=== PATIENT | female | born 1940 | race Caucasian/White ===

== ENCOUNTER 2024-12-20 11:57 | Inpatient (IN) | payer MEDICARE, OTHER ==
[~2024-12-20] VITALS: Ht 165.1 cm; Wt 88.6 kg
[2024-12-20 13:12] VITALS: BP 128/90; TEMP 97.5
[2024-12-20 13:27] VITALS: BP 128/90; TEMP 97.5
[2024-12-20] MEDS ORDERED: SEMA1PEN SQ (17:42)
[2024-12-20] MEDS ORDERED: LOSA100T31 PO (17:42)
[2024-12-20] MEDS ORDERED: METO50TA16 PO (17:42)
[2024-12-20] MEDS ORDERED: CEFD300C3 PO (17:42)
[2024-12-20] MEDS ORDERED: APIX5TAB PO (17:42)
[2024-12-20] MEDS ORDERED: METO2.5T2 PO (17:42)
[2024-12-20 17:55] VITALS: BP 106/40; TEMP 98.1; O2SAT 98
[2024-12-20] MEDS: METOPROLOL TARTRATE 50 MG TABLET PO SCH (20:58)
[2024-12-20] MEDS ORDERED: ACETAMINOPHEN 325 MG TABLET PO PRN (21:30)
[2024-12-20 22:44] VITALS: BP 118/62; TEMP 98.2; O2SAT 97
[2024-12-21] MEDS ORDERED: REMEDY ESSENTIAL ZINC PASTE 113 GM TOP PRN (06:45)
[2024-12-21 06:53] VITALS: BP 113/80; TEMP 97.7; O2SAT 99
[2024-12-21 07:48] VITALS: TEMP 97.9
[2024-12-21] MEDS: METOLAZONE 2.5 MG TABLET PO SCH (08:12)
[2024-12-21] MEDS: APIXABAN 5 MG TABLET PO SCH (08:13)
[2024-12-21] MEDS: TRAMADOL HCL 50 MG TABLET PO PRN (08:16)
[2024-12-21] MEDS: CEFDINIR 300 MG CAPSULE PO SCH (09:03)
[2024-12-21] MEDS ORDERED: DEXTROSE 50% 50 ML DISP.SYRIN IV PRN (15:45)
[2024-12-21 16:10] VITALS: TEMP 98
[2024-12-21 16:18] VITALS: O2SAT 98
[2024-12-21] MEDS: BLOOD SUGAR DIAGNOSTIC 1 EACH STRIP VI SCH (16:57)
[2024-12-21] MEDS: INSULIN REGULAR, HUMAN 1000 UNIT/10 ML VIAL SQ PRN (17:00)
[2024-12-21] MEDS: BISACODYL 5 MG TABLET.DR PO ONE (20:19)
[2024-12-21 21:08] VITALS: BP 130/87; TEMP 98; O2SAT 97
[2024-12-22 06:42] VITALS: BP 117/53; TEMP 97.8; O2SAT 97
[2024-12-22 08:00] VITALS: TEMP 97.2
[2024-12-22 08:13] LABS: BASOPHILS % (AUTO) 0.4 % (0.0-2.0); EOSINOPHILS % (AUTO) 0.4 % (0.0-7.0); HEMATOCRIT 37.6 % (31.2-41.9); HEMOGLOBIN 11.9 g/dL (10.9-14.3); LYMPHOCYTES # (AUTO) 0.8 K/uL (0.8-4.8); LYMPHOCYTES % (AUTO) 10.3 % (20.5-51.5); MEAN CORPUSCULAR HEMOGLOBIN 25.4 uug (24.7-32.8); MEAN CORPUSCULAR HGB CONC 32 g/dL (32.3-35.6); MEAN CORPUSCULAR VOLUME 80.2 fL (75.5-95.3); MONOCYTES # (AUTO) 0.6 K/uL (0.1-1.30); MONOCYTES % (AUTO) 8.1 % (0.0-11.0); NEUTROPHILS % (AUTO) 80.8 % (38.5-71.5); PLATELET COUNT (AUTO) 198 K/uL (179-408); RED BLOOD CELL COUNT(AUTO) 4.69 MIL/uL (3.63-4.92); RED CELL DISTRIBUTION WIDTH 15.8 % (12.3-17.7); WHITE BLOOD COUNT (AUTO) 7.4 K/uL (3.8-11.8)
[2024-12-22 08:31] LABS: DIFFERENTIAL COMMENT 1
[2024-12-22 08:42] LABS: IRON, SERUM 17 ug/dL (50-175)
[2024-12-22] MEDS: DOCUSATE SODIUM 100 MG CAPSULE PO SCH (08:46)
[2024-12-22 09:09] LABS: ALANINE AMINOTRANSFERASE 79 U/L (14-59); ALBUMIN 2.4 g/dL (3.4-5.0); ALKALINE PHOSPHATASE 93 U/L (50-136); ASPARTATE AMINOTRANSFERASE 73 U/L (15-37); BILIRUBIN,TOTAL 0.6 mg/dL (0.2-1.0); CALCIUM 8.6 mg/dL (8.5-10.1); CARBON DIOXIDE 35 mmol/L (21-32); CHLORIDE 99 mmol/L (98-107); CHOLESTEROL 135 mg/dL (<200); GLUCOSE 157 mg/dL (74-106); HDL CHOLESTEROL 31 mg/dL (40-60); MAGNESIUM 2.1 mg/dL (1.8-2.4); PHOSPHOROUS 3.4 mg/dL (2.5-4.9); POTASSIUM 3.8 mmol/L (3.5-5.1); SODIUM SERUM 139 mmol/L (136-145); TOTAL PROTEIN, SERUM 5.9 g/dL (6.4-8.2); TRIGLYCERIDES 80 MG/DL (30-150); UREA NITROGEN, BLOOD 32 mg/dL (7-18)
[2024-12-22 14:17] VITALS: O2SAT 97
[2024-12-22 16:21] VITALS: TEMP 97.9
[2024-12-22 21:11] VITALS: BP 119/65; TEMP 98.2; O2SAT 99
[2024-12-23 06:42] VITALS: BP 117/60; TEMP 97.7; O2SAT 97
[2024-12-23 07:32] VITALS: BP 127/78; TEMP 97.7; O2SAT 98
[2024-12-23 15:10] VITALS: BP 120/77; TEMP 97.7; O2SAT 93
[2024-12-23 17:30] VITALS: O2SAT 97
[2024-12-23 20:12] VITALS: BP 108/62; TEMP 98.3; O2SAT 97
[2024-12-24 05:42] VITALS: O2SAT 97
[2024-12-24 05:50] VITALS: BP 138/92; TEMP 98.2; O2SAT 99
[2024-12-24 07:32] LABS: BASOPHILS % (AUTO) 0.6 % (0.0-2.0); EOSINOPHILS % (AUTO) 0.4 % (0.0-7.0); HEMATOCRIT 39.2 % (31.2-41.9); HEMOGLOBIN 12.8 g/dL (10.9-14.3); LYMPHOCYTES # (AUTO) 1.4 K/uL (0.8-4.8); LYMPHOCYTES % (AUTO) 16.9 % (20.5-51.5); MEAN CORPUSCULAR HEMOGLOBIN 26.1 uug (24.7-32.8); MEAN CORPUSCULAR HGB CONC 33 g/dL (32.3-35.6); MEAN CORPUSCULAR VOLUME 79.8 fL (75.5-95.3); MONOCYTES # (AUTO) 0.6 K/uL (0.1-1.30); MONOCYTES % (AUTO) 8.1 % (0.0-11.0); PLATELET COUNT (AUTO) 234 K/uL (179-408); RED BLOOD CELL COUNT(AUTO) 4.91 MIL/uL (3.63-4.92); WHITE BLOOD COUNT (AUTO) 8.1 K/uL (3.8-11.8)
[2024-12-24 07:42] LABS: DIFFERENTIAL COMMENT 1
[2024-12-24 07:50] LABS: ALANINE AMINOTRANSFERASE 70 U/L (14-59); ALBUMIN 2.5 g/dL (3.4-5.0); ALKALINE PHOSPHATASE 106 U/L (50-136); ASPARTATE AMINOTRANSFERASE 66 U/L (15-37); BILIRUBIN,TOTAL 0.5 mg/dL (0.2-1.0); CALCIUM 8.5 mg/dL (8.5-10.1); CARBON DIOXIDE 33 mmol/L (21-32); CHLORIDE 95 mmol/L (98-107); CREATININE 0.9 mg/dL (0.6-1.3); GLUCOSE 101 mg/dL (74-106); POTASSIUM 4.1 mmol/L (3.5-5.1); SODIUM SERUM 131 mmol/L (136-145); TOTAL PROTEIN, SERUM 6.2 g/dL (6.4-8.2); UREA NITROGEN, BLOOD 28 mg/dL (7-18)
[2024-12-24 08:00] VITALS: BP 134/77; TEMP 97.7; O2SAT 99
[2024-12-24 16:11] VITALS: BP 124/74; TEMP 97.6; O2SAT 100
[2024-12-24 16:20] VITALS: O2SAT 99
[2024-12-24 20:52] VITALS: BP 117/63; TEMP 98; O2SAT 97
[2024-12-25 04:11] VITALS: O2SAT 97
[2024-12-25 06:58] VITALS: BP 111/82; TEMP 97.8; O2SAT 97
[2024-12-25 08:34] VITALS: TEMP 97.8
[2024-12-25 16:00] VITALS: TEMP 97.9
[2024-12-25 16:12] VITALS: O2SAT 98
[2024-12-25 20:08] VITALS: BP 114/69; TEMP 98.1; O2SAT 95
[2024-12-26 00:22] VITALS: O2SAT 95
[2024-12-26 06:29] VITALS: BP 112/68; TEMP 98.6; O2SAT 95
[2024-12-26 08:00] VITALS: TEMP 97.5
[2024-12-26 08:55] VITALS: O2SAT 96
[2024-12-26 16:10] VITALS: TEMP 98
[2024-12-26] MEDS ORDERED: NITROGLYCERIN 0.4 MG/TAB BOTTLE SL PRN (19:00)
[2024-12-26 20:24] VITALS: BP 148/87; TEMP 97.3; O2SAT 95
[2024-12-27] VITALS (7 sets, daily range): BP systolic 113–147; BP diastolic 57–89; TEMP 97.2–97.8; O2SAT 95–99
[2024-12-28 07:03] VITALS: BP 123/79; TEMP 97.5; O2SAT 93
[2024-12-28 08:00] VITALS: BP 145/84; TEMP 97.2; O2SAT 97
[2024-12-28 08:52] LABS: BASOPHILS % (AUTO) 0.2 % (0.0-2.0); DIFFERENTIAL COMMENT 0; EOSINOPHILS % (AUTO) 0.4 % (0.0-7.0); HEMATOCRIT 38.3 % (31.2-41.9); HEMOGLOBIN 12.8 g/dL (10.9-14.3); LYMPHOCYTES # (AUTO) 1.1 K/uL (0.8-4.8); LYMPHOCYTES % (AUTO) 11.6 % (20.5-51.5); MEAN CORPUSCULAR HEMOGLOBIN 26.3 uug (24.7-32.8); MEAN CORPUSCULAR HGB CONC 34 g/dL (32.3-35.6); MEAN CORPUSCULAR VOLUME 78.5 fL (75.5-95.3); MONOCYTES # (AUTO) 0.8 K/uL (0.1-1.30); MONOCYTES % (AUTO) 8.7 % (0.0-11.0); NEUTROPHILS # (AUTO) 7.4 K/uL (1.8-8.9); NEUTROPHILS % (AUTO) 79.1 % (38.5-71.5); PLATELET COUNT (AUTO) 224 K/uL (179-408); RED BLOOD CELL COUNT(AUTO) 4.88 MIL/uL (3.63-4.92); RED CELL DISTRIBUTION WIDTH 15.5 % (12.3-17.7); WHITE BLOOD COUNT (AUTO) 9.4 K/uL (3.8-11.8)
[2024-12-28 09:17] LABS: ABG BASE EXCESS 3.5 mmol/L (-2.0-3.0); ABG HCO3 27.5 mmol/L (21.0-28.0); ABG PCO2 39.5 mmHg (32.0-45.0); ABG PH 7.461 (7.350-7.450); ABG PO2 62.6 mmHg (83.0-108.0); ABG SITE RIGHT RADIAL; ABG TOTAL HEMOGLOBIN 13.9 G/dL (12.0-16.0); AaDO2 93.2 mmHg; COHb 0.8 % (0.5-1.5); O2Hb 91.7 % (94.0-98.0)
[2024-12-28] MEDS: BUMETANIDE 1 MG TABLET PO SCH (11:31)
[2024-12-28] MEDS: SPIRONOLACTONE 25 MG TABLET PO SCH (11:32)
[2024-12-28 11:39] LABS: CALCIUM 8.4 mg/dL (8.5-10.1); CARBON DIOXIDE 31 mmol/L (21-32); CHLORIDE 85 mmol/L (98-107); CREATININE 1.2 mg/dL (0.6-1.3); GLUCOSE 153 mg/dL (74-106); UREA NITROGEN, BLOOD 31 mg/dL (7-18)
[2024-12-28 11:42] LABS: SODIUM SERUM 123 mmol/L (136-145)
[2024-12-28] MEDS: SODIUM CHLORIDE 1,000 MG TABLET PO SCH (14:19)
[2024-12-28 16:00] VITALS: BP 139/65; TEMP 97.6; O2SAT 97
[2024-12-28] MEDS: GLUCERNA SHAKE 237 ML CAN PO SCH (16:43)
[2024-12-28 22:45] VITALS: BP 120/74; TEMP 97.7; O2SAT 97
[2024-12-29] VITALS (7 sets, daily range): BP systolic 85–135; BP diastolic 52–87; TEMP 97.2–97.6; O2SAT 95–100
[2024-12-29 07:53] LABS: BASOPHILS % (AUTO) 0.4 % (0.0-2.0); EOSINOPHILS % (AUTO) 0.1 % (0.0-7.0); HEMATOCRIT 39.3 % (31.2-41.9); LYMPHOCYTES % (AUTO) 8.4 % (20.5-51.5); MEAN CORPUSCULAR HEMOGLOBIN 25.8 uug (24.7-32.8); MEAN CORPUSCULAR HGB CONC 33 g/dL (32.3-35.6); MEAN CORPUSCULAR VOLUME 78.3 fL (75.5-95.3); MONOCYTES % (AUTO) 8.3 % (0.0-11.0); NEUTROPHILS # (AUTO) 10.2 K/uL (1.8-8.9); NEUTROPHILS % (AUTO) 82.8 % (38.5-71.5); PLATELET COUNT (AUTO) 298 K/uL (179-408); RED BLOOD CELL COUNT(AUTO) 5.02 MIL/uL (3.63-4.92); RED CELL DISTRIBUTION WIDTH 15.7 % (12.3-17.7); WHITE BLOOD COUNT (AUTO) 12.3 K/uL (3.8-11.8)
[2024-12-29 08:06] LABS: ALANINE AMINOTRANSFERASE 48 U/L (14-59); ALBUMIN 2.7 g/dL (3.4-5.0); ALKALINE PHOSPHATASE 121 U/L (50-136); ASPARTATE AMINOTRANSFERASE 41 U/L (15-37); BILIRUBIN,DIRECT 0.3 mg/dL (0.0-0.2); BILIRUBIN,TOTAL 0.8 mg/dL (0.2-1.0); CALCIUM 8.7 mg/dL (8.5-10.1); CARBON DIOXIDE 32 mmol/L (21-32); CHLORIDE 85 mmol/L (98-107); CREATININE 1.1 mg/dL (0.6-1.3); GLUCOSE 118 mg/dL (74-106); PHOSPHOROUS 3.8 mg/dL (2.5-4.9); POTASSIUM 4.2 mmol/L (3.5-5.1); SODIUM SERUM 124 mmol/L (136-145); TOTAL PROTEIN, SERUM 6.8 g/dL (6.4-8.2); UREA NITROGEN, BLOOD 26 mg/dL (7-18); URIC ACID 9.1 mg/dL (2.6-6.0)
[2024-12-29 08:10] LABS: DIFFERENTIAL COMMENT 1
[2024-12-29 08:41] LABS: THYROID STIMULATING HORMONE 4.146 mIU/mL (0.358-3.740)
[2024-12-30] MEDS: MIRALAX 17 GM POWD.PACK PO PRN (07:00)
[2024-12-30 07:20] LABS: BASOPHILS % (AUTO) 0.2 % (0.0-2.0); EOSINOPHILS % (AUTO) 0.1 % (0.0-7.0); HEMATOCRIT 41.5 % (31.2-41.9); HEMOGLOBIN 13.7 g/dL (10.9-14.3); LYMPHOCYTES # (AUTO) 1.4 K/uL (0.8-4.8); LYMPHOCYTES % (AUTO) 12.2 % (20.5-51.5); MEAN CORPUSCULAR HEMOGLOBIN 26.1 uug (24.7-32.8); MEAN CORPUSCULAR HGB CONC 33 g/dL (32.3-35.6); MEAN CORPUSCULAR VOLUME 79.3 fL (75.5-95.3); MONOCYTES % (AUTO) 8.5 % (0.0-11.0); NEUTROPHILS # (AUTO) 9.1 K/uL (1.8-8.9); PLATELET COUNT (AUTO) 292 K/uL (179-408); RED BLOOD CELL COUNT(AUTO) 5.24 MIL/uL (3.63-4.92); RED CELL DISTRIBUTION WIDTH 15.9 % (12.3-17.7); WHITE BLOOD COUNT (AUTO) 11.5 K/uL (3.8-11.8)
[2024-12-30 07:30] LABS: DIFFERENTIAL COMMENT 1
[2024-12-30 07:33] LABS: CARBON DIOXIDE 35 mmol/L (21-32); CHLORIDE 86 mmol/L (98-107); CREATININE 1.1 mg/dL (0.6-1.3); GLUCOSE 115 mg/dL (74-106); MAGNESIUM 1.8 mg/dL (1.8-2.4); PHOSPHOROUS 3.5 mg/dL (2.5-4.9); POTASSIUM 4.1 mmol/L (3.5-5.1); SODIUM SERUM 127 mmol/L (136-145); UREA NITROGEN, BLOOD 25 mg/dL (7-18)
[2024-12-30 07:35] VITALS: BP 141/71; O2SAT 100
[2024-12-30 08:14] VITALS: BP 127/71; TEMP 97.7; O2SAT 96
[2024-12-30] MEDS: BISACODYL 10 MG SUPP.RECT RC ONE (08:34)
[2024-12-30 16:00] VITALS: O2SAT 97
[2024-12-30 16:11] VITALS: TEMP 97.6
[2024-12-30 20:04] VITALS: BP 115/60; TEMP 97.5; O2SAT 97
[2024-12-30 20:52] VITALS: O2SAT 97
[2024-12-31 06:24] VITALS: BP 127/64; TEMP 97.6; O2SAT 98
[2024-12-31 07:42] VITALS: TEMP 97.8
[2024-12-31 08:00] VITALS: BP 123/64; TEMP 97.8; O2SAT 97
[2024-12-31] MEDS: CLOTRIMAZOLE/BETAMET DIPROP CREAM 15 GM TUBE TOP SCH (11:57)
[2024-12-31] MEDS: NYSTATIN POWDER 15 GM BOTTLE TOP SCH (11:59)
[2024-12-31 16:37] VITALS: TEMP 98.2; O2SAT 99
[2024-12-31 20:33] VITALS: O2SAT 97
[2025-01-01 06:00] VITALS: BP 103/67; TEMP 97.4; O2SAT 98
[2025-01-01 06:43] LABS: ALANINE AMINOTRANSFERASE 35 U/L (14-59); ALBUMIN 2.6 g/dL (3.4-5.0); ALKALINE PHOSPHATASE 91 U/L (50-136); ASPARTATE AMINOTRANSFERASE 34 U/L (15-37); BILIRUBIN,TOTAL 0.6 mg/dL (0.2-1.0); CALCIUM 8.5 mg/dL (8.5-10.1); CHLORIDE 89 mmol/L (98-107); GLUCOSE 126 mg/dL (74-106); MAGNESIUM 1.6 mg/dL (1.8-2.4); PHOSPHOROUS 3.9 mg/dL (2.5-4.9); POTASSIUM 4.2 mmol/L (3.5-5.1); SODIUM SERUM 130 mmol/L (136-145); TOTAL PROTEIN, SERUM 6.3 g/dL (6.4-8.2); UREA NITROGEN, BLOOD 27 mg/dL (7-18)
[2025-01-01 06:47] LABS: BASOPHILS % (AUTO) 0.2 % (0.0-2.0); DIFFERENTIAL COMMENT 0; EOSINOPHILS % (AUTO) 0.3 % (0.0-7.0); HEMATOCRIT 38.3 % (31.2-41.9); HEMOGLOBIN 12.8 g/dL (10.9-14.3); LYMPHOCYTES # (AUTO) 0.9 K/uL (0.8-4.8); LYMPHOCYTES % (AUTO) 9.8 % (20.5-51.5); MEAN CORPUSCULAR HEMOGLOBIN 26.3 uug (24.7-32.8); MEAN CORPUSCULAR HGB CONC 33 g/dL (32.3-35.6); MEAN CORPUSCULAR VOLUME 78.7 fL (75.5-95.3); MONOCYTES # (AUTO) 0.7 K/uL (0.1-1.30); MONOCYTES % (AUTO) 8.1 % (0.0-11.0); NEUTROPHILS # (AUTO) 7.5 K/uL (1.8-8.9); NEUTROPHILS % (AUTO) 81.6 % (38.5-71.5); PLATELET COUNT (AUTO) 235 K/uL (179-408); RED BLOOD CELL COUNT(AUTO) 4.86 MIL/uL (3.63-4.92); RED CELL DISTRIBUTION WIDTH 15.8 % (12.3-17.7); WHITE BLOOD COUNT (AUTO) 9.2 K/uL (3.8-11.8)
[2025-01-01 06:57] LABS: CARBON DIOXIDE 40 mmol/L (21-32)
[2025-01-01 08:09] VITALS: BP 111/60; TEMP 97.7; O2SAT 98
[2025-01-01] MEDS: ACETAzolamide 250 MG TABLET PO SCH (10:29)
[2025-01-01] MEDS: MAGNESIUM SULFATE/D5W 100 ML IV SCH (10:29)
[2025-01-01 16:00] VITALS: BP 110/58; TEMP 97.6; O2SAT 98
[2025-01-01 20:46] VITALS: O2SAT 97
[2025-01-01 21:25] VITALS: BP 112/52; TEMP 97.2; O2SAT 97
[2025-01-02 07:24] LABS: BASOPHILS % (AUTO) 0.5 % (0.0-2.0); EOSINOPHILS % (AUTO) 0.6 % (0.0-7.0); HEMATOCRIT 37.5 % (31.2-41.9); HEMOGLOBIN 12.3 g/dL (10.9-14.3); LYMPHOCYTES # (AUTO) 0.8 K/uL (0.8-4.8); LYMPHOCYTES % (AUTO) 11.4 % (20.5-51.5); MEAN CORPUSCULAR HEMOGLOBIN 25.8 uug (24.7-32.8); MEAN CORPUSCULAR HGB CONC 33 g/dL (32.3-35.6); MEAN CORPUSCULAR VOLUME 79.2 fL (75.5-95.3); MONOCYTES # (AUTO) 0.6 K/uL (0.1-1.30); MONOCYTES % (AUTO) 8.8 % (0.0-11.0); NEUTROPHILS # (AUTO) 5.7 K/uL (1.8-8.9); NEUTROPHILS % (AUTO) 78.7 % (38.5-71.5); PLATELET COUNT (AUTO) 228 K/uL (179-408); RED BLOOD CELL COUNT(AUTO) 4.74 MIL/uL (3.63-4.92); RED CELL DISTRIBUTION WIDTH 16.2 % (12.3-17.7); WHITE BLOOD COUNT (AUTO) 7.3 K/uL (3.8-11.8)
[2025-01-02 07:32] LABS: DIFFERENTIAL COMMENT 1
[2025-01-02 07:33] VITALS: BP 120/72; TEMP 97.6; O2SAT 100
[2025-01-02 07:40] LABS: CALCIUM 8.5 mg/dL (8.5-10.1); CARBON DIOXIDE 37 mmol/L (21-32); CHLORIDE 93 mmol/L (98-107); CREATININE 1.2 mg/dL (0.6-1.3); GLUCOSE 112 mg/dL (74-106); MAGNESIUM 2.1 mg/dL (1.8-2.4); PHOSPHOROUS 4.1 mg/dL (2.5-4.9); POTASSIUM 3.8 mmol/L (3.5-5.1); SODIUM SERUM 132 mmol/L (136-145); UREA NITROGEN, BLOOD 31 mg/dL (7-18)
[2025-01-02] MEDS: BUMETANIDE 1 MG TABLET PO SCH (08:51)
[2025-01-02] MEDS: SHARK LIVER OIL/PETROLAT OINT 60 GM TUBE RC PRN (10:22)
[2025-01-02] MEDS ORDERED: BISACODYL 5 MG TABLET.DR PO PRN (10:45)
[2025-01-02 11:21] VITALS: O2SAT 99
[2025-01-02] MEDS: BISACODYL 5 MG TABLET.DR PO PRN (12:06)
[2025-01-02] MEDS: MEDIHONEY= THERAHONEY 1.5 OZ TUBE TOP SCH (12:06)
[2025-01-02 15:20] VITALS: BP 109/47; TEMP 97.7; O2SAT 97
== END 2025-01-02 19:19 | disposition home health service (06) | DRG 291 ==
LOC: UNDOADMIN 11:57
PROVIDERS: ADMIT Physical Medicine & Rehabilitation Pain Medicine; ATTEND Physical Medicine & Rehabilitation Pain Medicine
PROC: 05HC33Z Insertion of Infusion Device into Left Basilic Vein, Percutaneous Approach (ICD-10-PCS; principal; 2025-01-01)
DX: I13.0 Hypertensive heart and chronic kidney disease with heart failure and stage 1 through stage 4 chronic kidney disease, or unspecified chronic kidney disease (principal); I50.43 Acute on chronic combined systolic (congestive) and diastolic (congestive) heart failure; N17.0 Acute kidney failure with tubular necrosis; J96.01 Acute respiratory failure with hypoxia; D68.59 Other primary thrombophilia; I48.20 Chronic atrial fibrillation, unspecified; J98.11 Atelectasis; E87.1 Hypo-osmolality and hyponatremia; I27.20 Pulmonary hypertension, unspecified; E11.9 Type 2 diabetes mellitus without complications; E11.22 Type 2 diabetes mellitus with diabetic chronic kidney disease; E11.40 Type 2 diabetes mellitus with diabetic neuropathy, unspecified; E78.5 Hyperlipidemia, unspecified; I25.10 Atherosclerotic heart disease of native coronary artery without angina pectoris; I34.0 Nonrheumatic mitral (valve) insufficiency; I42.9 Cardiomyopathy, unspecified; I48.0 Paroxysmal atrial fibrillation; I70.0 Atherosclerosis of aorta; K59.00 Constipation, unspecified; N18.9 Chronic kidney disease, unspecified; Z79.01 Long term (current) use of anticoagulants; Z68.36 Body mass index [BMI] 36.0-36.9, adult; E66.9 Obesity, unspecified; Z87.440 Personal history of urinary (tract) infections
CPT/HCPCS: 36415; 36600; 71045; 83550; 83735; 84100; 84443; 84550; 85025; 94760; 97535-GO-CO; A4663; A6209; A9150; J1815; J3475; J8499

== ENCOUNTER 2025-03-18 16:32 | Inpatient (IN) | payer MEDICARE, OTHER ==
[~2025-03-18] VITALS: Ht 162.6 cm; Wt 88.7 kg
[~2025-03-18 16:32] MED LIST: APIX5TAB PO; CEFD300C3 PO; LOSA100T31 PO; METO2.5T2 PO; METO50TA16 PO; SEMA1PEN SQ
[2025-03-19 10:00] VITALS: BP 135/76; TEMP 98
[2025-03-19 11:02] VITALS: BP 135/76; TEMP 98
[2025-03-20 13:16] VITALS: BP 108/74; TEMP 97.4
[2025-03-20 13:31] VITALS: BP 108/74; TEMP 97.4
[2025-03-20] MEDS ORDERED: CEPH500C2 PO (17:43)
[2025-03-20] MEDS ORDERED: CAPT25TA3 PO (17:45)
[2025-03-20] MEDS ORDERED: ASPI-1420 PO (17:45)
[2025-03-20] MEDS ORDERED: FURO40TA5 PO (17:45)
[2025-03-20] MEDS ORDERED: FENO145T21 PO (17:45)
[2025-03-20] MEDS ORDERED: ATEN50TA PO (17:45)
[2025-03-20] MEDS ORDERED: EZET10TA32 PO (17:45)
[2025-03-20] MEDS ORDERED: ESCI-9 PO (17:45)
[2025-03-20] MEDS ORDERED: ROSU20TA2 PO (17:45)
[2025-03-20] MEDS ORDERED: ACET-73 PO (17:47)
[2025-03-20] MEDS ORDERED: SITA1TAB6 PO (17:48)
[2025-03-20] MEDS ORDERED: AMLO10TA59 PO (17:49)
[2025-03-20 17:58] VITALS: BP 108/74; TEMP 207.3
[2025-03-20 19:00] VITALS: BP 107/64; TEMP 97.9; O2SAT 97
[2025-03-20] MEDS ORDERED: ACETAMINOPHEN ES 500 MG TABLET- SA PATIENTS-PAIN ONLY PO PRN (19:15)
[2025-03-20] MEDS ORDERED: Sitagliptin Phos/Metformin Hcl (Janumet 50-1,000 Mg Tabl PO SCH (21:00)
[2025-03-20] MEDS: ATORVASTATIN 40 MG TABLET PO SCH (21:36)
[2025-03-20] MEDS: LOSARTAN POTASSIUM 50 MG TABLET PO SCH (21:36)
[2025-03-21 05:00] VITALS: BP 101/59; TEMP 96.5; O2SAT 98
[2025-03-21 07:38] VITALS: BP 121/69; TEMP 97.7; O2SAT 98
[2025-03-21 07:39] VITALS: O2SAT 98
[2025-03-21 08:20] LABS: PLATELET COUNT (AUTO) 142 K/uL (179-408); RED BLOOD CELL COUNT(AUTO) 3.92 MIL/uL (3.63-4.92); RED CELL DISTRIBUTION WIDTH 20.8 % (12.3-17.7); WHITE BLOOD COUNT (AUTO) 4.6 K/uL (3.8-11.8)
[2025-03-21 08:38] LABS: CREATININE 1.2 mg/dL (0.6-1.3); SODIUM SERUM 137 mmol/L (136-145); UREA NITROGEN, BLOOD 27 mg/dL (7-18)
[2025-03-21] MEDS: CAPTOPRIL PO SCH (09:00)
[2025-03-21] MEDS: EZETIMIBE 10 MG TABLET PO SCH (09:10)
[2025-03-21] MEDS: ESCITALOPRAM OXALATE 10 MG TABLET PO SCH (09:11)
[2025-03-21] MEDS: ASPIRIN EC 81 MG TABLET.DR PO SCH (09:11)
[2025-03-21] MEDS: FENOFIBRATE NANOCRYSTALLIZED 145 MG TABLET PO SCH (09:11)
[2025-03-21] MEDS: ATENOLOL 50 MG TABLET PO SCH (09:11)
[2025-03-21] MEDS: AMLODIPINE 10 MG TABLET PO SCH (09:12)
[2025-03-21] MEDS: FUROSEMIDE 40 MG TABLET PO SCH (09:12)
[2025-03-21] MEDS: LINAGLIPTIN 5 MG TABLET PO SCH (09:12)
[2025-03-21] MEDS: APIXABAN 5 MG TABLET PO SCH (09:14)
[2025-03-21] MEDS: METFORMIN HCL 500 MG TABLET PO SCH (09:17)
[2025-03-21 15:40] VITALS: BP 90/48; TEMP 97.7; O2SAT 98
[2025-03-21 18:30] VITALS: BP 101/55; TEMP 97.8; O2SAT 98
[2025-03-21] MEDS ORDERED: MIDODRINE HCL 2.5 MG TABLET PO PRN (19:15)
[2025-03-21] MEDS: MIDODRINE HCL 5 MG TABLET PO SCH (19:24)
[2025-03-21] MEDS: IV NORMAL SALINE 500 ML IV ONE (20:12)
[2025-03-21] MEDS ORDERED: Rosuvastatin Calcium (Crestor) 1 TAB) PO SCH (21:00)
[2025-03-21 21:07] VITALS: BP 97/51; TEMP 98; O2SAT 96
[2025-03-21] MEDS: ATORVASTATIN 40 MG TABLET PO SCH (21:19)
[2025-03-21] MEDS: REMEDY ESSENTIAL ZINC PASTE 113 GM TOP SCH (21:20)
[2025-03-22 05:10] VITALS: BP 113/63; TEMP 97.6; O2SAT 97
[2025-03-22 08:00] VITALS: BP 114/64; TEMP 97.7; O2SAT 97
[2025-03-22] MEDS ORDERED: MIDODRINE HCL 5 MG TABLET PO PRN (08:45)
[2025-03-22] MEDS: LOSARTAN POTASSIUM 50 MG TABLET PO SCH (09:00)
[2025-03-22] MEDS: ACETAMINOPHEN 500 MG TABLET PO PRN (12:22)
[2025-03-22 16:00] VITALS: BP 103/59; TEMP 97.4; O2SAT 98
[2025-03-22 16:10] VITALS: O2SAT 97
[2025-03-22 20:00] VITALS: BP 94/42; TEMP 97.7; O2SAT 97
[2025-03-23 05:00] VITALS: BP 96/51; TEMP 97.5; O2SAT 98
[2025-03-23 05:41] VITALS: O2SAT 99
[2025-03-23 07:19] LABS: PLATELET COUNT (AUTO) 160 K/uL (179-408); RED BLOOD CELL COUNT(AUTO) 3.81 MIL/uL (3.63-4.92); RED CELL DISTRIBUTION WIDTH 19.9 % (12.3-17.7); WHITE BLOOD COUNT (AUTO) 4.4 K/uL (3.8-11.8)
[2025-03-23 07:31] LABS: CREATININE 1.3 mg/dL (0.6-1.3); SODIUM SERUM 135 mmol/L (136-145); UREA NITROGEN, BLOOD 34 mg/dL (7-18)
[2025-03-23 07:43] VITALS: BP 118/64; TEMP 97.4; O2SAT 97
[2025-03-23] MEDS: IV NS 1000 ML 1,000 ML IV SCH (08:33)
[2025-03-23] MEDS: LOSARTAN POTASSIUM 50 MG TABLET PO SCH (09:00)
[2025-03-23 15:28] VITALS: BP 110/65; TEMP 97.4; O2SAT 98
[2025-03-23 16:06] LABS: *BLOOD, URINE NEGATIVE (NEGATIVE); *CLARITY,URINE SLIGHTLY CLOUDY (CLEAR); *COLOR,URINE YELLOW (YELLOW); *KETONES,URINE TRACE (NEGATIVE); *PROTEIN,URINE NEGATIVE (NEGATIVE); *UROBILINOGEN,URINE 2.0 E.U./dl (NORMAL); LEUKOCYTE ESTERASE ,URINE 3+ (NEGATIVE); NITRITE, URINE POSITIVE (NEGATIVE); UGLUCOSE NEGATIVE (NEGATIVE)
[2025-03-23 16:07] LABS: *BILIRUBIN,URIN 2+ (NEGATIVE)
[2025-03-23 16:14] LABS: SQUAMOUS EPITHELIAL CELL,UR FEW /HPF (NONE SEEN)
[2025-03-23 16:24] VITALS: O2SAT 98
[2025-03-23] MEDS: GLUCERNA SHAKE 237 ML CAN PO SCH (17:38)
[2025-03-23] MEDS: CEFEPIME (MAXEPIME) 1 G in IV DEXTROSE 5% 50 ML IV SCH (17:39)
[2025-03-23] MEDS ORDERED: CEFEPIME (MAXEPIME) 1 G in IV DEXTROSE 5% 50 ML IV SCH (21:00)
[2025-03-23 21:39] VITALS: BP 112/53; TEMP 97.7; O2SAT 98
[2025-03-24 06:18] VITALS: BP 118/61; TEMP 97.6; O2SAT 97
[2025-03-24 07:08] LABS: PLATELET COUNT (AUTO) 160 K/uL (179-408); RED BLOOD CELL COUNT(AUTO) 3.77 MIL/uL (3.63-4.92); RED CELL DISTRIBUTION WIDTH 20.0 % (12.3-17.7); WHITE BLOOD COUNT (AUTO) 5.3 K/uL (3.8-11.8)
[2025-03-24 07:42] LABS: CREATININE 1.1 mg/dL (0.6-1.3); SODIUM SERUM 132 mmol/L (136-145); UREA NITROGEN, BLOOD 31 mg/dL (7-18)
[2025-03-24 08:01] VITALS: BP 120/63; TEMP 97.6; O2SAT 97
[2025-03-24] MEDS: FUROSEMIDE 40 MG/4 ML VIAL IV SCH (08:18)
[2025-03-24 16:22] VITALS: BP 114/53; TEMP 97.3; O2SAT 95
[2025-03-24 20:07] VITALS: BP 102/56; TEMP 97.9; O2SAT 93
[2025-03-25 06:00] VITALS: BP 140/76; TEMP 97.8; O2SAT 94
[2025-03-25 08:21] VITALS: BP 126/59; TEMP 97.7; O2SAT 94
[2025-03-25 09:46] LABS: CREATININE 1.2 mg/dL (0.6-1.3); SODIUM SERUM 134 mmol/L (136-145); UREA NITROGEN, BLOOD 31 mg/dL (7-18)
[2025-03-25] MEDS: FUROSEMIDE 40 MG TABLET PO SCH (09:53)
[2025-03-25 15:49] VITALS: BP 111/63; TEMP 97.7; O2SAT 95
[2025-03-25 20:45] VITALS: BP 105/55; TEMP 97.7; O2SAT 93
[2025-03-26 06:09] VITALS: BP 119/73; TEMP 97.9; O2SAT 93
[2025-03-26 07:48] VITALS: BP 126/77; TEMP 97.6; O2SAT 94
[2025-03-26 08:54] LABS: CREATININE 1.1 mg/dL (0.6-1.3); SODIUM SERUM 136 mmol/L (136-145); UREA NITROGEN, BLOOD 30 mg/dL (7-18)
[2025-03-26 16:00] VITALS: BP 122/61; TEMP 97.9; O2SAT 95
[2025-03-26 20:00] VITALS: BP 102/50; TEMP 97.9; O2SAT 94
[2025-03-27 05:00] VITALS: BP 137/78; TEMP 98.1; O2SAT 90
[2025-03-27 07:30] LABS: PLATELET COUNT (AUTO) 167 K/uL (179-408); RED BLOOD CELL COUNT(AUTO) 4.01 MIL/uL (3.63-4.92); RED CELL DISTRIBUTION WIDTH 20.0 % (12.3-17.7); WHITE BLOOD COUNT (AUTO) 5.7 K/uL (3.8-11.8)
[2025-03-27 07:35] LABS: CREATININE 1.0 mg/dL (0.6-1.3); SODIUM SERUM 135 mmol/L (136-145); UREA NITROGEN, BLOOD 27 mg/dL (7-18)
[2025-03-27 07:46] VITALS: BP 138/76; TEMP 97.9; O2SAT 99
[2025-03-27 07:47] VITALS: O2SAT 99
[2025-03-27] MEDS: SPIRONOLACTONE 25 MG TABLET PO SCH (08:08)
[2025-03-27] MEDS: METOPROLOL SUCCINATE XL 50 MG TAB.SR.24H PO SCH (08:08)
[2025-03-27] MEDS: BUMETANIDE 1 MG TABLET PO SCH (08:09)
[2025-03-27] MEDS: NITROFURANTOIN/NITROFURAN MAC 100 MG CAPSULE PO SCH (14:19)
[2025-03-27 14:56] LABS: *BILIRUBIN,URIN NEGATIVE (NEGATIVE); *BLOOD, URINE NEGATIVE (NEGATIVE); *CLARITY,URINE CLEAR (CLEAR); *COLOR,URINE YELLOW (YELLOW); *KETONES,URINE NEGATIVE (NEGATIVE); *PROTEIN,URINE NEGATIVE (NEGATIVE); *UROBILINOGEN,URINE 0.2 E.U./dl (NORMAL); LEUKOCYTE ESTERASE ,URINE 1+ (NEGATIVE); NITRITE, URINE NEGATIVE (NEGATIVE); UGLUCOSE NEGATIVE (NEGATIVE)
[2025-03-27 15:54] VITALS: BP 120/62; TEMP 98; O2SAT 96
[2025-03-27 19:56] VITALS: BP 134/72; TEMP 98.1; O2SAT 95
[2025-03-28 05:50] VITALS: BP 131/80; TEMP 98; O2SAT 93
[2025-03-28 07:38] VITALS: BP 128/84; TEMP 97.6; O2SAT 98
[2025-03-28 08:08] LABS: CREATININE 1.0 mg/dL (0.6-1.3); SODIUM SERUM 135 mmol/L (136-145); UREA NITROGEN, BLOOD 25 mg/dL (7-18)
[2025-03-28 15:54] VITALS: BP 105/58; TEMP 97.8; O2SAT 96
[2025-03-28 20:00] VITALS: BP 102/54; TEMP 98; O2SAT 97
[2025-03-29 06:00] VITALS: BP 129/79; TEMP 98.2; O2SAT 95
[2025-03-29 08:00] VITALS: BP 114/64; TEMP 98.2; O2SAT 98
[2025-03-29 08:13] LABS: PLATELET COUNT (AUTO) 181 K/uL (179-408); RED BLOOD CELL COUNT(AUTO) 3.82 MIL/uL (3.63-4.92); RED CELL DISTRIBUTION WIDTH 19.7 % (12.3-17.7); WHITE BLOOD COUNT (AUTO) 6.5 K/uL (3.8-11.8)
[2025-03-29 08:23] LABS: CREATININE 1.1 mg/dL (0.6-1.3); SODIUM SERUM 138 mmol/L (136-145); UREA NITROGEN, BLOOD 23 mg/dL (7-18)
[2025-03-29 16:00] VITALS: BP 119/71; TEMP 97.5; O2SAT 98
[2025-03-29 16:20] VITALS: O2SAT 98
[2025-03-29 19:53] VITALS: BP 112/67; TEMP 97.7; O2SAT 98
[2025-03-29 21:11] VITALS: O2SAT 98
[2025-03-30 06:38] VITALS: BP 131/62; TEMP 97.3; O2SAT 97
[2025-03-30 06:41] VITALS: BP 131/62; TEMP 97.3; O2SAT 97
[2025-03-30 08:00] VITALS: BP 136/76; TEMP 97.4; O2SAT 98
[2025-03-30] MEDS: LOSARTAN POTASSIUM 25 MG TABLET PO SCH (08:46)
[2025-03-30] MEDS ORDERED: LOSARTAN POTASSIUM 50 MG TABLET PO SCH (09:00)
[2025-03-30 16:30] VITALS: BP 123/66; TEMP 98; O2SAT 97
[2025-03-30 18:31] VITALS: O2SAT 98
[2025-03-30 20:00] VITALS: BP 115/74; TEMP 97.7
[2025-03-31 05:30] VITALS: BP 123/80; TEMP 97.6; O2SAT 97
[2025-03-31 07:13] LABS: PLATELET COUNT (AUTO) 176 K/uL (179-408); RED BLOOD CELL COUNT(AUTO) 3.87 MIL/uL (3.63-4.92); RED CELL DISTRIBUTION WIDTH 19.4 % (12.3-17.7); WHITE BLOOD COUNT (AUTO) 7.1 K/uL (3.8-11.8)
[2025-03-31 07:58] VITALS: BP 139/77; TEMP 97.9; O2SAT 98
[2025-03-31 15:50] VITALS: BP 129/72; TEMP 97.7; O2SAT 100
[2025-03-31 21:54] VITALS: BP 106/60; TEMP 97.8; O2SAT 95
[2025-04-01 02:09] VITALS: O2SAT 98
[2025-04-01 06:44] VITALS: BP 122/59; TEMP 97.5; O2SAT 97
[2025-04-01 08:21] VITALS: BP 123/66; TEMP 97.7; O2SAT 98
[2025-04-01 16:00] VITALS: BP 122/61; TEMP 97.7; O2SAT 98
[2025-04-01 16:12] VITALS: O2SAT 98
[2025-04-01 22:09] VITALS: BP 114/66; TEMP 97.4; O2SAT 99
[2025-04-02 05:41] VITALS: O2SAT 98
[2025-04-02 06:24] VITALS: BP 120/78; TEMP 97.7; O2SAT 99
[2025-04-02 06:32] LABS: PLATELET COUNT (AUTO) 168 K/uL (179-408); RED BLOOD CELL COUNT(AUTO) 3.80 MIL/uL (3.63-4.92); RED CELL DISTRIBUTION WIDTH 19.3 % (12.3-17.7); WHITE BLOOD COUNT (AUTO) 6.2 K/uL (3.8-11.8)
[2025-04-02 08:00] VITALS: BP 131/72; TEMP 97.7; O2SAT 97
[2025-04-02 16:00] VITALS: BP 104/65; TEMP 97; O2SAT 95
[2025-04-02 19:52] VITALS: BP 110/66; TEMP 97.9; O2SAT 94
[2025-04-03] VITALS (8 sets, daily range): BP systolic 107–137; BP diastolic 56–70; TEMP 97.5–98.2; O2SAT 95–100
[2025-04-04 04:00] VITALS: O2SAT 98
[2025-04-04 05:00] VITALS: BP 118/73; TEMP 97.8; O2SAT 96
[2025-04-04 07:50] VITALS: BP 107/64; TEMP 98.2; O2SAT 99
[2025-04-04 08:22] VITALS: BP 107/64
== END 2025-04-04 13:30 | DRG 291 ==
LOC: UNDOADMIN 03-20 16:22 → UNDODISIN 04-04 13:30
PROVIDERS: ADMIT Physical Medicine & Rehabilitation Pain Medicine; ATTEND Physical Medicine & Rehabilitation Pain Medicine
DX: I13.0 Hypertensive heart and chronic kidney disease with heart failure and stage 1 through stage 4 chronic kidney disease, or unspecified chronic kidney disease (principal); I50.23 Acute on chronic systolic (congestive) heart failure; N17.9 Acute kidney failure, unspecified; E46 Unspecified protein-calorie malnutrition; I48.20 Chronic atrial fibrillation, unspecified; N39.0 Urinary tract infection, site not specified; E87.1 Hypo-osmolality and hyponatremia; N18.9 Chronic kidney disease, unspecified; D64.9 Anemia, unspecified; E11.22 Type 2 diabetes mellitus with diabetic chronic kidney disease; E66.9 Obesity, unspecified; R53.1 Weakness; I27.20 Pulmonary hypertension, unspecified; I42.0 Dilated cardiomyopathy; L89.156 Pressure-induced deep tissue damage of sacral region; Z79.01 Long term (current) use of anticoagulants; I95.9 Hypotension, unspecified; R21 Rash and other nonspecific skin eruption; R53.81 Other malaise; Z91.148 Patient's other noncompliance with medication regimen for other reason
CPT/HCPCS: 36415; 71045; 83735; 84100; 85025; 87040; 87077; 87086; 97535-GO-CO; A4663; A6213; A9150; J0692; J1938; J7040

== ENCOUNTER 2025-06-13 13:35 | Inpatient (IN) | payer MEDICARE, OTHER ==
[~2025-06-13] VITALS: Ht 165.1 cm; Wt 85.0 kg
[~2025-06-13 13:35] MED LIST changes: +ACET-73 PO; +AMLO10TA59 PO; +ASPI-1420 PO; +ATEN50TA PO; -CEFD300C3 PO; +CEPH500C2 PO; +ESCI-9 PO; +EZET10TA32 PO; +FENO145T21 PO; +FURO40TA5 PO; -METO2.5T2 PO; -METO50TA16 PO; +ROSU20TA2 PO; -SEMA1PEN SQ; +SITA1TAB6 PO
[2025-06-13 14:03] LABS: PLATELET COUNT (AUTO) 128 K/uL (179-408); RED BLOOD CELL COUNT(AUTO) 3.90 MIL/uL (3.63-4.92); RED CELL DISTRIBUTION WIDTH 20.1 % (12.3-17.7); WHITE BLOOD COUNT (AUTO) 6.3 K/uL (3.8-11.8)
[2025-06-13] MEDS ORDERED: PIPERACILLIN/TAZOBACTAM/D5W 50 ML IV ONE (14:11)
[2025-06-13 14:27] LABS: LACTIC ACID 2.8 mmol/L (0.4-2.0)
[2025-06-13 14:34] LABS: ASPARTATE AMINOTRANSFERASE 50 U/L (15-37); CREATININE 2.0 mg/dL (0.6-1.3); SODIUM SERUM 138 mmol/L (136-145); TOTAL PROTEIN, SERUM 6.1 g/dL (6.4-8.2); UREA NITROGEN, BLOOD 49 mg/dL (7-18)
[2025-06-13] MEDS: IV NORMAL SALINE 1000 ML BAG IV ONE (14:50)
[2025-06-13] MEDS: PIPERACILLIN SODIUM/TAZOBACTAM 3.375 G in IV DEXTROSE 5% 50 ML IV ONE (14:50)
[2025-06-13 16:11] LABS: *CLARITY,URINE CLOUDY (CLEAR); *COLOR,URINE YELLOW (YELLOW)
[2025-06-13 16:12] LABS: *BILIRUBIN,URIN NEGATIVE (NEGATIVE); *KETONES,URINE NEGATIVE (NEGATIVE); *UROBILINOGEN,URINE 0.2 E.U./dl (NORMAL); LEUKOCYTE ESTERASE ,URINE 2+ (NEGATIVE); NITRITE, URINE NEGATIVE (NEGATIVE)
[2025-06-13 16:13] LABS: *PROTEIN,URINE 1+ (NEGATIVE)
[2025-06-13 16:14] LABS: *BLOOD, URINE 2+ (NEGATIVE); UGLUCOSE NEGATIVE (NEGATIVE)
[2025-06-13 16:25] LABS: SQUAMOUS EPITHELIAL CELL,UR FEW /HPF (NONE SEEN)
[2025-06-13] MEDS ORDERED: VANCOMYCIN IV 200 ML ONE (18:50)
[2025-06-13] MEDS: NOREPINEPHRINE 8MG/NS 250ML 250 ML IV PRN (19:00)
[2025-06-13] MEDS: VANCOMYCIN IV 1,000 MG in IV DEXTROSE 5% 250 ML IV ONE (19:00)
[2025-06-13] MEDS ORDERED: ONDANSETRON 4 MG/2 ML VIAL IV PRN (19:45)
[2025-06-13] MEDS ORDERED: HYDROCODONE/APAP 5-325MG TABLET PO PRN (19:45)
[2025-06-13] MEDS ORDERED: ALBUTEROL SULFATE 2.5 MG/ 0.5 ML NEBU NEB PRN (19:45)
[2025-06-13] MEDS ORDERED: APIXABAN 2.5 MG TABLET ONE (20:54)
[2025-06-13] MEDS ORDERED: PIPERACILLIN/TAZOBACTAM/D5W 50 ML ONE (20:54)
[2025-06-13] MEDS ORDERED: APIXABAN 5 MG TABLET PO SCH (21:00)
[2025-06-13] MEDS: PIPERACILLIN/TAZO 2.25 G in IV DEXTROSE 5% 50 ML IV SCH (21:32)
[2025-06-13] MEDS: APIXABAN 2.5 MG TABLET PO SCH (21:32)
[2025-06-14] MEDS ORDERED: PIPERACILLIN/TAZO 2.25 G in IV DEXTROSE 5% 50 ML IV SCH
[2025-06-14] MEDS ORDERED: ACETAMINOPHEN 325 MG TABLET ONE ×2 (00:17→15:59)
[2025-06-14] MEDS: ACETAMINOPHEN 325 MG TABLET PO PRN (00:22)
[2025-06-14 05:44] LABS: PLATELET COUNT (AUTO) 154 K/uL (179-408); RED BLOOD CELL COUNT(AUTO) 4.39 MIL/uL (3.63-4.92); RED CELL DISTRIBUTION WIDTH 20.3 % (12.3-17.7); WHITE BLOOD COUNT (AUTO) 8.1 K/uL (3.8-11.8)
[2025-06-14 05:59] LABS: ASPARTATE AMINOTRANSFERASE 60 U/L (15-37); CREATININE 2.1 mg/dL (0.6-1.3); SODIUM SERUM 137 mmol/L (136-145); TOTAL PROTEIN, SERUM 6.4 g/dL (6.4-8.2); UREA NITROGEN, BLOOD 47 mg/dL (7-18)
[2025-06-14 06:03] LABS: IRON, SERUM 53 ug/dL (50-175)
[2025-06-14] MEDS ORDERED: PIPERACILLIN/TAZOBACTAM/D5W 50 ML ONE (06:28)
[2025-06-14] MEDS ORDERED: MAGNESIUM OXIDE 400 MG TABLET ONE (06:42)
[2025-06-14] MEDS ORDERED: PANTOPRAZOLE SODIUM 40 MG TABLET.DR PO ONE (06:42)
[2025-06-14] MEDS: PANTOPRAZOLE SODIUM 40 MG TABLET.DR PO SCH (06:43)
[2025-06-14] MEDS: MAGNESIUM OXIDE 400 MG TABLET PO ONE (06:43)
[2025-06-14 07:58] LABS: ABG BASE EXCESS -0.2 mmol/L (-2.0-3.0); ABG HCO3 26.1 mmol/L (21.0-28.0); ABG PCO2 49.4 mmHg (32.0-45.0); ABG PH 7.341 (7.350-7.450); ABG PO2 96.8 mmHg (83.0-108.0); ABG SITE RIGHT RADIAL; ABG TOTAL HEMOGLOBIN 13.8 G/dL (12.0-16.0); AaDO2 96.9 mmHg; FIO2 28.0 %; FLOW, BLOOD GAS 2.00 L/min (0.00-30.00)
[2025-06-14] MEDS: APIXABAN 5 MG TABLET PO SCH (09:00)
[2025-06-14] MEDS ORDERED: EZETIMIBE 10 MG TABLET PO SCH (09:00)
[2025-06-14] MEDS ORDERED: PANTOPRAZOLE SODIUM IV 40 MG in IV DEXTROSE 5% 100 ML IV SCH (09:00)
[2025-06-14] MEDS ORDERED: NOREPINEPHRINE 8MG/NS 250ML 250 ML IV ONE (09:15)
[2025-06-14] MEDS ORDERED: ASPIRIN EC 81 MG TABLET.DR PO ONE (09:15)
[2025-06-14] MEDS: ASPIRIN EC 81 MG TABLET.DR PO SCH (09:34)
[2025-06-14] MEDS: ESCITALOPRAM OXALATE 10 MG TABLET PO SCH (09:34)
[2025-06-14] MEDS ORDERED: APIXABAN 5 MG TABLET ONE (11:00)
[2025-06-14] MEDS: VANCOMYCIN HCL 750 MG in IV DEXTROSE 5% 250 ML IV ONE (11:01)
[2025-06-14] MEDS ORDERED: ATOR40TA PO (11:23)
[2025-06-14] MEDS ORDERED: ASCO500T21 PO (11:24)
[2025-06-14] MEDS ORDERED: BUME2TAB8 PO (11:27)
[2025-06-14] MEDS ORDERED: BISA10SU61 RC (11:27)
[2025-06-14] MEDS ORDERED: NA P133E RC (11:27)
[2025-06-14] MEDS ORDERED: LOSA25TA27 PO (11:28)
[2025-06-14] MEDS ORDERED: MIDO10TA PO (11:31)
[2025-06-14] MEDS ORDERED: METF-495 PO (11:31)
[2025-06-14] MEDS ORDERED: METO-357 PO (11:31)
[2025-06-14] MEDS ORDERED: MAGN400O6 PO (11:33)
[2025-06-14] MEDS ORDERED: MULT-1045 PO (11:33)
[2025-06-14] MEDS ORDERED: PROT946L PO (11:34)
[2025-06-14] MEDS ORDERED: SAXA5TAB PO (11:35)
[2025-06-14] MEDS: PIPERACILLIN SODIUM/TAZOBACTAM 3.375 G in IV DEXTROSE 5% 100 ML IV SCH (18:29)
[2025-06-14] MEDS ORDERED: APIXABAN 2.5 MG TABLET ONE (20:47)
[2025-06-14] MEDS ORDERED: APIXABAN 2.5 MG TABLET PO SCH (21:00)
[2025-06-14] MEDS: APIXABAN 2.5 MG TABLET PO SCH (21:00)
[2025-06-15] VITALS (20 sets, daily range): BP systolic 90–118; BP diastolic 57–79; TEMP 97.7; O2SAT 92–100
[2025-06-15] MEDS ORDERED: NOREPINEPHRINE 8MG/NS 250ML 250 ML IV ONE (01:40)
[2025-06-15 05:29] LABS: PLATELET COUNT (AUTO) 120 K/uL (179-408); RED BLOOD CELL COUNT(AUTO) 4.05 MIL/uL (3.63-4.92); RED CELL DISTRIBUTION WIDTH 20.7 % (12.3-17.7); WHITE BLOOD COUNT (AUTO) 6.5 K/uL (3.8-11.8)
[2025-06-15 05:45] LABS: CREATININE 1.9 mg/dL (0.6-1.3); SODIUM SERUM 138 mmol/L (136-145); UREA NITROGEN, BLOOD 42 mg/dL (7-18)
[2025-06-15] MEDS ORDERED: PANTOPRAZOLE SODIUM 40 MG TABLET.DR PO ONE (06:05)
[2025-06-15 06:36] LABS: ASPARTATE AMINOTRANSFERASE 34.0 U/L (15-37); TOTAL PROTEIN, SERUM 5.0 g/dL (6.4-8.2)
[2025-06-15] MEDS: VANCOMYCIN HCL 750 MG in IV DEXTROSE 5% 250 ML IV ONE (08:00)
[2025-06-15] MEDS ORDERED: ASPIRIN EC 81 MG TABLET.DR PO SCH (09:00)
[2025-06-15] MEDS ORDERED: FUROSEMIDE 20 MG/2 ML VIAL ONE (09:15)
[2025-06-15] MEDS ORDERED: ESCITALOPRAM OXALATE 10 MG TABLET ONE (09:15)
[2025-06-15] MEDS: FUROSEMIDE 20 MG/2 ML VIAL IV SCH (09:20)
[2025-06-15] MEDS ORDERED: MAGNESIUM SULFATE/D5W 100 ML ONE (10:03)
[2025-06-15] MEDS ORDERED: NOREPINEPHRINE 8MG/NS 250ML 250 ML IV PRN (10:15)
[2025-06-15] MEDS: MAGNESIUM SULFATE/D5W 100 ML IV SCH (10:30)
[2025-06-15] MEDS ORDERED: MAGNESIUM OXIDE 400 MG TABLET PO ONE (11:00)
[2025-06-15] MEDS: MEDIHONEY= THERAHONEY 1.5 OZ TUBE TOP SCH (19:00)
[2025-06-15] MEDS ORDERED: LEVALBUTEROL HCL NEB 0.63 MG/3 ML NEBU NEB PRN (20:30)
[2025-06-15] MEDS ORDERED: PHENYLEPHRINE IV 50 MG in IV NORMAL SALINE 245 ML IV PRN (20:30)
[2025-06-15] MEDS ORDERED: PHENYLEPHRINE 10 MG/1 ML VIAL ONE (21:34)
[2025-06-15] MEDS: PHENYLEPHRINE IV 50 MG in IV NORMAL SALINE 245 ML IV PRN (21:38)
[2025-06-16] VITALS (100 sets, daily range): BP systolic 88–136; BP diastolic 55–118; TEMP 96.1–98.1; O2SAT 91–100
[2025-06-16 05:18] LABS: PLATELET COUNT (AUTO) 116 K/uL (179-408); RED BLOOD CELL COUNT(AUTO) 4.00 MIL/uL (3.63-4.92); RED CELL DISTRIBUTION WIDTH 20.8 % (12.3-17.7); WHITE BLOOD COUNT (AUTO) 7.9 K/uL (3.8-11.8)
[2025-06-16 05:32] LABS: CREATININE 1.7 mg/dL (0.6-1.3); SODIUM SERUM 141 mmol/L (136-145); UREA NITROGEN, BLOOD 36 mg/dL (7-18)
[2025-06-16] MEDS: VANCOMYCIN HCL 750 MG in IV DEXTROSE 5% 250 ML IV ONE (09:47)
[2025-06-16] MEDS: ACIDOPHILUS/BULGARICUS CHEW TAB PO SCH (09:54)
[2025-06-16] MEDS: MUPIROCIN 2% OINT 22 GM TUBE NS SCH (09:54)
[2025-06-16] MEDS: GEL BASE NO.41 100 GM GEL..GRAM. TOP SCH (09:55)
[2025-06-16] MEDS: PIPERACILLIN SODIUM/TAZOBACTAM 3.375 G in IV DEXTROSE 5% 100 ML IV SCH (14:18)
[2025-06-16] MEDS: POTASSIUM CHLORIDE 10 MEQ TAB.PRT.SR PO ONE (14:18)
[2025-06-16] MEDS: MAGNESIUM OXIDE 400 MG TABLET PO ONE (14:19)
[2025-06-16] MEDS: ENSURE ENLIVE (VAN) 240 ML LIQUID PO SCH (14:30)
[2025-06-16] MEDS: DIGOXIN 500 MCG/2 ML AMP IV ONE (17:57)
[2025-06-16] MEDS: ARGININE/GLUTAMINE/CALCIUM BMB 1 EACH POWD.PACK PO SCH (17:57)
[2025-06-17] VITALS (69 sets, daily range): BP systolic 94–149; BP diastolic 55–133; TEMP 98–98.9; O2SAT 94–100
[2025-06-17 04:32] LABS: PLATELET COUNT (AUTO) 121 K/uL (179-408); RED BLOOD CELL COUNT(AUTO) 4.02 MIL/uL (3.63-4.92); RED CELL DISTRIBUTION WIDTH 20.3 % (12.3-17.7); WHITE BLOOD COUNT (AUTO) 7.7 K/uL (3.8-11.8)
[2025-06-17 04:45] LABS: ASPARTATE AMINOTRANSFERASE 47 U/L (15-37); CREATININE 1.5 mg/dL (0.6-1.3); SODIUM SERUM 143 mmol/L (136-145); TOTAL PROTEIN, SERUM 6.2 g/dL (6.4-8.2); UREA NITROGEN, BLOOD 31 mg/dL (7-18)
[2025-06-17] MEDS: MAGNESIUM SULFATE/D5W 100 ML IV SCH (08:37)
[2025-06-17] MEDS: PHYTONADIONE 10 MG/1 ML AMPUL SQ ONE (08:38)
[2025-06-17] MEDS: FUROSEMIDE 40 MG/4 ML VIAL IV ONE (10:37)
[2025-06-17] MEDS: FUROSEMIDE 40 MG/4 ML VIAL IV SCH (20:33)
[2025-06-18] VITALS (20 sets, daily range): BP systolic 101–130; BP diastolic 51–94; TEMP 97.5–98.9; O2SAT 96–98
[2025-06-18 05:30] LABS: PLATELET COUNT (AUTO) 96 K/uL (179-408); RED BLOOD CELL COUNT(AUTO) 3.88 MIL/uL (3.63-4.92); RED CELL DISTRIBUTION WIDTH 20.3 % (12.3-17.7); WHITE BLOOD COUNT (AUTO) 7.5 K/uL (3.8-11.8)
[2025-06-18 05:44] LABS: CREATININE 1.3 mg/dL (0.6-1.3); SODIUM SERUM 143 mmol/L (136-145); UREA NITROGEN, BLOOD 25 mg/dL (7-18)
[2025-06-18 06:17] LABS: EOSINOPHILS % (MANUAL) 2 % (0-8); LYMPHOCYTES % (MANUAL) 8 % (20-40); MONOCYTES % (MANUAL) 5 % (2-10); NEUTROPHILS % (MANUAL) 85 % (42-75); PLATELET ESTIMATE DECREASED
[2025-06-18] MEDS: MAGNESIUM SULFATE/D5W 100 ML IV SCH (09:50)
[2025-06-18] MEDS: POTASSIUM PHOSPHATE MM 15 MMOL in IV NORMAL SALINE 250 ML IV ONE (10:08)
[2025-06-18] MEDS: VANCOMYCIN HCL 750 MG in IV DEXTROSE 5% 250 ML IV ONE (10:08)
[2025-06-18] MEDS: CEFEPIME HCL 2 GM in IV DEXTROSE 5% 100 ML IV SCH (13:31)
[2025-06-19] VITALS (8 sets, daily range): BP systolic 108–139; BP diastolic 64–73; TEMP 98–98.4; O2SAT 97–100
[2025-06-19 07:16] LABS: PLATELET COUNT (AUTO) 105 K/uL (179-408); RED BLOOD CELL COUNT(AUTO) 3.90 MIL/uL (3.63-4.92); RED CELL DISTRIBUTION WIDTH 20.1 % (12.3-17.7); WHITE BLOOD COUNT (AUTO) 6.8 K/uL (3.8-11.8)
[2025-06-19 07:33] LABS: ASPARTATE AMINOTRANSFERASE 32 U/L (15-37); CREATININE 1.2 mg/dL (0.6-1.3); SODIUM SERUM 145 mmol/L (136-145); TOTAL PROTEIN, SERUM 6.0 g/dL (6.4-8.2); UREA NITROGEN, BLOOD 34 mg/dL (7-18)
[2025-06-19] MEDS ORDERED: POTASSIUM CHLORIDE 20 MEQ POWDER PACKET GT ONE (09:00)
[2025-06-19] MEDS: POTASSIUM CHLORIDE 20 MEQ TAB.PRT.SR PO ONE (10:52)
[2025-06-19] MEDS: APIXABAN 5 MG TABLET PO SCH (10:52)
[2025-06-19] MEDS: VANCOMYCIN IV 500 MG in IV DEXTROSE 5% 100 ML IV ONE (10:54)
[2025-06-20] VITALS (7 sets, daily range): BP systolic 103–125; BP diastolic 54–73; TEMP 97.6–98; O2SAT 97–100
[2025-06-20 07:13] LABS: PLATELET COUNT (AUTO) 97 K/uL (179-408); RED BLOOD CELL COUNT(AUTO) 3.93 MIL/uL (3.63-4.92); RED CELL DISTRIBUTION WIDTH 20.9 % (12.3-17.7); WHITE BLOOD COUNT (AUTO) 6.6 K/uL (3.8-11.8)
[2025-06-20 07:38] LABS: CREATININE 1.1 mg/dL (0.6-1.3); SODIUM SERUM 143 mmol/L (136-145); UREA NITROGEN, BLOOD 34 mg/dL (7-18)
[2025-06-20] MEDS: MULTIVITAMINS,THERAPEUTIC TABLET PO SCH (09:13)
[2025-06-20] MEDS: VANCOMYCIN IV 500 MG in IV DEXTROSE 5% 100 ML IV ONE (09:14)
[2025-06-20] MEDS: PROTEIN SUPPLEMENT (PROSTAT) 30 ML LIQUID PO SCH (09:25)
[2025-06-20] MEDS: REMEDY ESSENTIAL ZINC PASTE 113 GM TOP SCH (20:31)
[2025-06-21 06:03] VITALS: O2SAT 98
[2025-06-21 06:14] VITALS: BP 118/66; TEMP 97.7; O2SAT 95
[2025-06-21 07:25] LABS: PLATELET COUNT (AUTO) 95 K/uL (179-408); RED BLOOD CELL COUNT(AUTO) 3.71 MIL/uL (3.63-4.92); RED CELL DISTRIBUTION WIDTH 21.5 % (12.3-17.7); WHITE BLOOD COUNT (AUTO) 5.3 K/uL (3.8-11.8)
[2025-06-21 07:43] LABS: CREATININE 1.2 mg/dL (0.6-1.3); SODIUM SERUM 144 mmol/L (136-145); UREA NITROGEN, BLOOD 32 mg/dL (7-18)
[2025-06-21] MEDS: POTASSIUM CHLORIDE 20 MEQ POWDER PACKET GT ONE (09:34)
[2025-06-21] MEDS: POTASSIUM CHLORIDE 50 ML IV SCH (09:34)
[2025-06-21 12:00] VITALS: BP 118/70; TEMP 97.8; O2SAT 97
[2025-06-21] MEDS ORDERED: ACID1TAB4 PO (13:25)
[2025-06-21] MEDS ORDERED: MUPI22OI2 NS (13:25)
[2025-06-21] MEDS ORDERED: APIX5TAB PO (13:25)
[2025-06-21] MEDS ORDERED: ACET250T9 PO (13:25)
[2025-06-21] MEDS ORDERED: GEL100GE TOP (13:25)
[2025-06-21] MEDS ORDERED: BUME1TAB8 PO (13:25)
[2025-06-21] MEDS: VANCOMYCIN IV 500 MG in IV DEXTROSE 5% 100 ML IV ONE (14:36)
[2025-06-21 16:00] VITALS: BP 108/72; TEMP 97.8; O2SAT 96
[2025-06-21] MEDS ORDERED: ALBUTEROL SULFATE 1.25 MG/3 ML NEBU NEB PRN (16:15)
[2025-06-21 19:46] VITALS: BP 111/59; TEMP 97.6; O2SAT 94
== END 2025-06-21 20:25 | DRG 871 ==
LOC: ER 13:35 → ICU IN 19:27 → CCU 06-15 19:50 → TELE3 06-18 14:47 → MEDSURG3 06-20 14:00
PROVIDERS: ADMIT Internal Medicine; ATTEND Internal Medicine
DX: A41.9 Sepsis, unspecified organism (principal); I50.23 Acute on chronic systolic (congestive) heart failure; N17.0 Acute kidney failure with tubular necrosis; R65.21 Severe sepsis with septic shock; J96.01 Acute respiratory failure with hypoxia; E44.0 Moderate protein-calorie malnutrition; E87.3 Alkalosis; I27.20 Pulmonary hypertension, unspecified; D69.6 Thrombocytopenia, unspecified; N39.0 Urinary tract infection, site not specified; L03.116 Cellulitis of left lower limb; B96.20 Unspecified Escherichia coli [E. coli] as the cause of diseases classified elsewhere; B96.5 Pseudomonas (aeruginosa) (mallei) (pseudomallei) as the cause of diseases classified elsewhere; I13.0 Hypertensive heart and chronic kidney disease with heart failure and stage 1 through stage 4 chronic kidney disease, or unspecified chronic kidney disease; E11.22 Type 2 diabetes mellitus with diabetic chronic kidney disease; E66.9 Obesity, unspecified; I70.244 Atherosclerosis of native arteries of left leg with ulceration of heel and midfoot; I08.0 Rheumatic disorders of both mitral and aortic valves; D68.59 Other primary thrombophilia; I42.9 Cardiomyopathy, unspecified; I48.20 Chronic atrial fibrillation, unspecified; L97.221 Non-pressure chronic ulcer of left calf limited to breakdown of skin; L97.422 Non-pressure chronic ulcer of left heel and midfoot with fat layer exposed; J98.11 Atelectasis; Z66 Do not resuscitate; Z68.29 Body mass index [BMI] 29.0-29.9, adult; E78.5 Hyperlipidemia, unspecified; Z79.01 Long term (current) use of anticoagulants; N18.2 Chronic kidney disease, stage 2 (mild); I48.0 Paroxysmal atrial fibrillation; Z74.09 Other reduced mobility; T50.2X5A Adverse effect of carbonic-anhydrase inhibitors, benzothiadiazides and other diuretics, initial encounter; Y92.230 Patient room in hospital as the place of occurrence of the external cause; E11.40 Type 2 diabetes mellitus with diabetic neuropathy, unspecified; E11.51 Type 2 diabetes mellitus with diabetic peripheral angiopathy without gangrene; I70.242 Atherosclerosis of native arteries of left leg with ulceration of calf; R60.0 Localized edema; Z60.3 Acculturation difficulty; Z79.82 Long term (current) use of aspirin; Z79.84 Long term (current) use of oral hypoglycemic drugs; Z79.899 Other long term (current) drug therapy; I70.0 Atherosclerosis of aorta; E87.6 Hypokalemia
CPT/HCPCS: 36415; 36556; 36600; 70030-TC; 71045; 83550; 83605; 83735; 84100; 84443; 84484; 85025; 85610; 85730; 87040; 87077; 87086; 93005; 93307; 94760; A4606; A4663; A6209; A6213; G0378; J0692; J1160; J1938; J2543; J3373; J3430; J3475; J3480; J3490; J7040; J7050; J8499